=== PATIENT | female | born 1970 | race Caucasian/White ===

== ENCOUNTER 2020-11-14 16:17 | Outpatient (CLI) | payer OTHER, SELFPAY ==
--- NOTE | ~2020-11-14 | MM_ITS ---
EXAMINATION: MM screening chiquis BI w adriana HISTORY: Screening mammogram TECHNIQUE: Craniocaudal and mediolateral oblique 3-D tomosynthesis images were obtained and synthetic 2-D images were generated. CAD analysis was submitted and interpreted. COMPARISON: 03/24/2019, 07/24/2017 bilateral digital screening mammogram examinations BREAST PARENCHYMAL COMPOSITION: There are scattered areas of fibroglandular density. FINDINGS: There is an approximately 5.3 mm mass in the mid to lateral central right breast at mid dep th (MLO Tomosynthesis image 24/60). Diagnostic right mammogram and right breast ultrasound examinatio n are recommended. There are bilateral circumscribed benign-appearing axillary tail lymph nodes. Otherwise there is no evidence of suspicious mass, calcification, or architectural distortion to sugg est malignancy in either breast. There has been no other suspicious interval change. IMPRESSION: 1. 5.3 mm right breast mass 2. Diagnostic right mammogram and right breast ultrasound examination are recommended BI-RADS Category 0: Incomplete: Needs additional imaging evaluation. Reviewed, dictated and finalized at location A. IMPRESSION: 1. 5.3 mm right breast mass 2. Diagnostic right mammogram and right breast ultrasound examination are recom mended BI-RADS Category 0: Incomplete: Needs additional imaging evaluation.
== END 2020-11-14 16:18 | disposition home or self-care (01) ==
PROVIDERS: Visit Provider Obstetrics & Gynecology
DX: Z12.31 Encounter for screening mammogram for malignant neoplasm of breast (principal); R92.8 Other abnormal and inconclusive findings on diagnostic imaging of breast
CPT/HCPCS: 77063; 77067

== ENCOUNTER 2021-03-18 14:00 | Outpatient (CLI) | payer OTHER, SELFPAY ==
--- NOTE | ~2021-03-18 | MMUS_ITS ---
EXAMINATION: MM diagnostic chiquis RT w adriana, US breast RT complete HISTORY: Follow-up right breast asymmetries TECHNIQUE: Additional 3-D tomosynthesis images of the right breast were performed and synthetic 2-D i mages were generated. CAD analysis was submitted and interpreted. High resolution complete right tacho st ultrasound was performed. COMPARISON: Comparison to multiple prior studies sequentially, with oldest reviewed study dated 03/30. BREAST PARENCHYMAL COMPOSITION: The breasts are heterogenously dense, which may obscure small masses. FINDINGS: MAMMOGRAPHIC FINDINGS: There are scattered nodular asymmetries in the right breast which cannot be confirmed with 2 views. T here are no suspicious calcifications or architectural distortion. ULTRASOUND: Complete bilateral US of all 4 quadrants of the right breast and retroareolar region was reviewed. Th ere are multiple simple cysts of the right breast at 2:00, 4:00 and 6:00. No suspicious masses to sug gest malignancy. These correspond to the areas of mammographic asymmetry. IMPRESSION: 1. No evidence for malignancy in the right breast. Benign findings. 2. Routine yearly screening mammogram and regular clinical breast examination are recommended. BI-RADS Category 2: Benign finding(s). Reviewed, dictated and finalized at location A. [facility] IMPRESSION: 1. No evidence for malignancy in the right breast. Benign findings. 2. Routine yearly screening mammogram and regular clinical breast examination a re recommended. BI-RADS Category 2: Benign finding(s).
== END 2021-03-18 14:01 | disposition home or self-care (01) ==
LOC: ANHIMG 14:02
PROVIDERS: Visit Provider Obstetrics & Gynecology
DX: N63.10 Unspecified lump in the right breast, unspecified quadrant (principal); R92.8 Other abnormal and inconclusive findings on diagnostic imaging of breast
CPT/HCPCS: 76641; 77061; 77065; G0279